=== PATIENT | male | born 1970 | race Asian ===

== ENCOUNTER 2020-05-02 08:53 | Day surgery (SDC) | payer BC ==
[2020-05-02] VITALS (8 sets, daily range): BP systolic 128–134; BP diastolic 79–95
[~2020-05-02] VITALS: Ht 177.8 cm; Wt 79.4 kg
[~2020-05-02 08:53] MED LIST: MULTIVITAMINS1 EAC2 PO; VITAMIN C500 M1 ORAL; vitamin D PO
[2020-05-02] MEDS ORDERED: LR 1000ml 1,000 ML IVLG SCH ×2 (09:00→10:26)
--- NOTE | 2020-05-02 09:57 | Pre-Procedure Note/Attestation ---
Pre-Procedure Note/Attestation Complete Prior to Procedure Planned Procedure: not applicable Procedure Narrative: screening Indications for Procedure Pre-Operative Diagnosis: colonoscopy Attestation I attest that I discussed the nature of the procedure; its benefits; risks and complications; and alternatives (and the risks and benefits of such alternatives ), prior to the procedure, with the patient (or the patient's legal mill representative). I attest that, if there was a reasonable possibility of needing a blood transfusion, the patient (or the patient's legal mill representative) was given the [facility] standardized written summary, pursuant to the [place] Blood Safety Act ([place] Health and Safety Code # 1645, as amended). I attest that I re-evaluated the patient just prior to the surgery and that there has been no change in the patient's H&P, except as documented below: Raul Patel MD May 02, 2020 09:57
--- NOTE | 2020-05-02 09:58 | Short Stay Surgery H&P ---
History of Present Illness History of Present Illness Chief Complaint screening colon HPI Justin Curry is a 49 year old male who was admitted on for Colon Screening Patient History Allergies: Coded Allergies: No Known Allergies (Unverified , 01/11/13) Medication History Scheduled Ascorbic Acid* (Vitamin C*), 500 MG ORAL DAILY, (Reported) [vitamin D], 5,000 UNITS PO DAILY, (Reported) Discontinued Medications Multivitamins* (Multivitamins*), 1 EACH PO DAILY, (Reported) Discontinued Reason: Pt stopped taking med Review of Systems Cardiovascular: Reports: no symptoms Respiratory: Reports: no symptoms Skeletal: Reports: no symptoms Gastrointestinal: Reports: no symptoms Genitourinary: Reports: no symptoms Neurologic: Reports: no symptoms Endocrine: Reports: no symptoms Hematologic: Reports: no symptoms Physical Exam Vital Signs Last Vital Signs Date Time Temp Pulse Resp B/P (MAP) Pulse Ox O2 Delivery O2 Flow Rate FiO2 05/02/20 09:17 97.7 84 18 130/86 97 Room Air Skin: normal HENT: normal Heart: normal Lungs: normal Abdomen: normal Extremities: normal Plan Plan of Care colonoscopy Attestation Are the patient's medical conditions optimized for surgery? Attestation Response: yes Raul Patel MD May 02, 2020 09:58
[2020-05-02] MEDS ORDERED: Lidocaine 1% MPF 10mg/ml 5ml ONE (10:00)
[2020-05-02] MEDS ORDERED: LR 1000ml ONE (10:00)
--- NOTE | 2020-05-02 10:29 | Anethesia Preoperative Eval ---
Anesthesia Pre-op PMH/ROS General Date of Evaluation: May 02, 2020 Time of Evaluation: 10:01 Anesthesiologist: Karie ASA Score: ASA 2 Mallampati Score Class I : Soft palate, uvula, fauces, pillars visible Class II: Soft palate, uvula, fauces visible Class III: Soft palate, base of uvula visible Class IV: Only hard plate visible Mallampati Classification: Class II Surgeon: Amanda Diagnosis: Abd Pain Surgical Procedure: Colonoscopy Anesthesia History: none Family History: no anesthesia problems Allergies: Coded Allergies: No Known Allergies (Unverified , 01/11/13) Medications: see eMAR Patient NPO?: Yes Past Medical History Cardiovascular: Reports: HTN Anesthesia Pre-op Phys. Exam Physician Exam Last Vital Signs Date Time Temp Pulse Resp B/P (MAP) Pulse Ox O2 Delivery O2 Flow Rate FiO2 05/02/20 09:17 97.7 84 18 130/86 97 Room Air Constitutional: NAD Neurologic: CN 2-12 intact Cardiovascular: RRR Respiratory: CTA Gastrointestinal: S/NT/ND Airway Exam Mallampati Score: Class II MO: full ROM: limited Teeth: missing, intact Anesthesia Pre-op A/P Risk Assessment & Plan Assessment: ASA 3 Plan: TIVA Status Change Before Surgery: No Yeison Tiwari MD May 02, 2020 10:29
[2020-05-02] MEDS ORDERED: HYDROcodone/Acetamin 7.5/325 tab ORAL PRN (10:30)
[2020-05-02] MEDS ORDERED: Atropine Sulfate 0.4mg/ml inj IVP PRN (10:30)
[2020-05-02] MEDS ORDERED: DiphenhydrAMINE 50mg/ml Inj IVP PRN (10:30)
[2020-05-02] MEDS ORDERED: oxyCODONE HCL/Acetaminophen 5/325mg ORAL PRN (10:30)
[2020-05-02] MEDS ORDERED: Midazolam 2mg/2ml Inj IVP PRN (10:30)
[2020-05-02] MEDS ORDERED: HYDROcodone/Acetamin 5/325 tab ORAL PRN (10:30)
[2020-05-02] MEDS ORDERED: fentaNYL 100 mcg/2 mL IV PRN (10:30)
[2020-05-02] MEDS ORDERED: Labetalol 5mg/ml 20ml vial IV PRN (10:30)
[2020-05-02] MEDS ORDERED: Ketorolac 30mg Inj IV PRN ×2 (10:30)
[2020-05-02] MEDS ORDERED: Meperidine 25mg/0.5ml Inj (FOR RIGORS ONLY) IV PRN (10:30)
[2020-05-02] MEDS ORDERED: Hydromorphone 0.5mg/0.5ml inj IVP PRN (10:30)
[2020-05-02] MEDS ORDERED: Metoclopramide 10mg/2ml Inj IVP PRN (10:30)
[2020-05-02] MEDS ORDERED: LORazepam Inj 2mg/ml 1ml IV PRN (10:30)
--- NOTE | 2020-05-02 10:33 | Immediate Post-Op Evaluation ---
Immediate Post-Op Evalulation Immediate Post-Op Evalulation Procedure: Colonoscopy Date of Evaluation: May 02, 2020 Time of Evaluation: 11:02 IV Fluids: 500 LR Blood Products: 0 Estimated Blood Loss: 2 Urinary Output: 0 Blood Pressure Systolic: 134 Blood Pressure Diastolic: 86 Pulse Rate: 76 Respiratory Rate: 16 O2 Sat by Pulse Oximetry: 100 Temperature (Fahrenheit): 98.1 Pain Score (1-10): 0 Nausea: No Vomiting: No Complications 0 Patient Status: awake, reacts, patent, none Hydration Status: adequate Yeison Tiwari MD May 02, 2020 10:33
--- NOTE | 2020-05-02 10:33 | 48 Hour Post Anesthesia Eval ---
Post Anesthesia Evaluation Procedure: Colonoscopy Date of Evaluation: May 02, 2020 Time of Evaluation: 13:12 Blood Pressure Systolic: 128 0: 76 Pulse Rate: 78 Respiratory Rate: 18 Temperature (Fahrenheit): 98.3 O2 Sat by Pulse Oximetry: 100 Airway: patent Nausea: No Vomiting: No Pain Intensity: 0 Hydration Status: adequate Cardiopulmonary Status: Stable Mental Status/LOC: patient returned to baseline Follow-up Care/Observations: 0 Post-Anesthesia Complications: 0 Follow-up care needed: ready to discharge Yeison Tiwari MD May 02, 2020 10:33
--- NOTE | 2020-05-02 10:37 | Endoscopy Procedure Note ---
Endoscopy Procedure Note General Indication for Procedure: screening Procedures Performed: colonoscopy Operative Findings/Diagnosis: one polyp Specimen: yes Pt Tolerated Procedure Well: Yes Estimated Blood Loss: none Anesthesia Anesthesiologist: niels Anesthesia: MAC Inserted Devices Implant(s) used?: No Quality Quality of Bowel Preparation: Good Did scope reach the cecum?: Yes Was there any complications?: No GI Core Measures 50 yrs or older w/o bx or poly: No 10yrs. F/U recommended: Yes If not recommended, why?: Above average risk 18 years or older w/prev. colo: No Raul Patel MD May 02, 2020 10:37
--- NOTE | 2020-05-02 11:30 | Procedure Note ---
DATE OF PROCEDURE: 05/02/2020 SURGEON: Raul Patel MD. PROCEDURE: Colonoscopy with biopsy. ANESTHESIA: Per Dr. Tiwari. INSTRUMENT: Olympus adult flexible colonoscope. INDICATION: Screening colonoscopy. REASON FOR PROCEDURE: The procedure, risks, benefits, and possible consequences, including hemorrhage, aspiration, perforation and infection, and alternative treatments, were explained to the patient/legal guardian by Dr. Raul Patel and the patient/legal guardian understood and accepted these risks. PROCEDURE IN DETAIL: After informed consent was obtained and the patient was adequately sedated, first rectal exam was performed, which was positive for internal hemorrhoids. Then, the scope was advanced from the rectum into the cecum documented by appendix orifice, ileocecal valve, and right upper quadrant palpation. Quality of prep overall was good except for the cecum which was covered with little bit brownish stool. The patient had one polyp in the descending colon. It was removed by biopsy forceps technique. The patient had one single diverticula in the left colon. Retroflexion of rectum showed evidence of medium-sized internal hemorrhoids. The patient tolerated the procedure very well without any complication. SUMMARY OF FINDINGS: 1. One polyp removed. See above for details. 2. One single diverticula in the left colon. 3. Internal hemorrhoids. RECOMMENDATIONS: 1. Follow pathology and treat accordingly. 2. We recommend repeat colonoscopy in 5 years. Raul Patel M.D. DR: CONRAD JOB#: [id number] CC:
== END 2020-05-02 12:10 | disposition home or self-care (01) ==
LOC: GAS 08:53
DX: Z12.11 Encounter for screening for malignant neoplasm of colon (principal); K63.5 Polyp of colon; K57.90 Diverticulosis of intestine, part unspecified, without perforation or abscess without bleeding; K64.8 Other hemorrhoids; I10 Essential (primary) hypertension; D12.4 Benign neoplasm of descending colon
CPT/HCPCS: 45380; 93005; 94003; J2704; J7120; 94150